=== PATIENT | female | born 1930 | race Caucasian/White ===

== ENCOUNTER → 2016-11-18 | Outpatient (CLI) | payer MEDICARE | LOC: COL.VAS 11-14 13:30 | DX: I49.8 Other specified cardiac arrhythmias (principal); I47.1 Supraventricular tachycardia; R00.1 Bradycardia, unspecified; I34.0 Nonrheumatic mitral (valve) insufficiency; I27.89 Other specified pulmonary heart diseases; I77.810 Thoracic aortic ectasia ==